=== PATIENT | male | born 1985 | race Caucasian/White ===

== ENCOUNTER 2024-09-25 22:36 | Emergency (ER) | payer OTHER ==
[~2024-09-25] VITALS: Ht 180.3 cm; Wt 66.3 kg
[2024-09-25 22:39] VITALS: BP 133/76; PULSE 68; RESP 12; TEMP 36.8; O2SAT 97; O2SAT 99
[2024-09-25] MEDS ORDERED: OCUFLX EACHEYE (23:14)
== END 2024-09-25 23:59 | disposition home or self-care (01) ==
LOC: ER 22:36
DX: H10.89 Other conjunctivitis (principal); Z79.899 Other long term (current) drug therapy
CPT/HCPCS: 99283